=== PATIENT | male | born 1990 ===

== ENCOUNTER 2025-05-18 09:58 | Outpatient (CLI) | payer SELFPAY ==
--- NOTE | 2025-05-18 10:00 | RT.EKG_ITS ---
APPROVED REPORT Exam: Resting ECG Reason for Exam: High Risk Medication Use Patient Location: O HR:77 bpm ECG Measurements Heart Rate 77 AXIS [place] 168 P 34 QRSd 94 QRS 47 QT 466 T 60 QTc 528 Conclusion Sinus rhythm...normal P axis, V-rate 50- 99 LVH by voltage...R >2.60mV in V5 or V6 Prolonged QT interval...QTc >488mS
== END 2025-05-18 09:59 | disposition home or self-care (01) ==
PROVIDERS: Visit Provider Family Medicine
DX: Z79.899 Other long term (current) drug therapy (principal)
CPT/HCPCS: 93005; 93010